=== PATIENT | male | born 1965 | race Asian ===

== ENCOUNTER 2017-03-25 12:29 | Emergency (ER) | payer OTHER ==
[~2017-03-25] VITALS: Ht 175.3 cm; Wt 83.5 kg
[2017-03-25] MEDS ORDERED: ALLOPURINOL300 M1 ORAL (12:45)
[2017-03-25 14:03] VITALS: BP 169/102
[2017-03-25] MEDS ORDERED: ZOFRAN4 M3 ORAL (14:13)
[2017-03-25] MEDS ORDERED: IBUPROFEN600 MG ORAL (14:13)
--- NOTE | 2017-03-25 14:15 | Diagnostic Imaging Report ---
Indication: Pain Findings: 3 views of the left wrist were obtained. No acute fractures, malalignment, erosions or periostitis are identified. Soft tissues are unremarkable. Impression: No acute findings.
--- NOTE | 2017-03-25 14:15 | Diagnostic Imaging Report ---
Indication: Back pain Comparison: None Findings: 3 views of the lumbar spine were obtained. Multilevel narrowing of intervertebral disks and associated endplate and facet osteophytes are present. There is a minimal anterolisthesis at L4-5. No acute fracture definitely seen. Impression: Mild spondylosis. No acute injury appreciated.
--- NOTE | 2017-03-25 20:58 | Emergency Room Report ---
History of Present Illness General Chief Complaint: Multiple Trauma/Fall Source: Patient Present Illness HPI The patient is a 51-year-old male presenting for pain after workplace injury. He states that he slipped and fell today. He states that he broke his fall with his left hand and also hit his head. No loss of consciousness. He is now experiencing dizziness, headache, nausea, and left wrist pain. he denies previous injury to these areas. Pain is an 8/10 dull ache and does not radiate from the wrist. He also admits to some numbness of his hand. He denies other symptoms including vomiting, neck pain, chest pain, shortness of breath Allergies: Coded Allergies: No Known Allergies (Unverified , 03/25/17) Patient History Past Medical History: see triage record Pertinent Family History: none Reviewed Nursing Documentation: PMH: Agreed, PSxH: Agreed Nursing Documentation-PMH Past Medical History: No History, Except For Review of Systems All Other Systems: negative except mentioned in HPI Physical Exam Vital Signs Date Time Temp Pulse Resp B/P (MAP) Pulse Ox O2 Delivery O2 Flow Rate FiO2 03/25/17 12:41 98.8 100 17 169/102 99 Room Air Sp02 EP Interpretation: reviewed, normal General Appearance: no apparent distress, alert, GCS 15, non-toxic Head: normocephalic, atraumatic, other - TTP L parietal scalp Eyes: bilateral eye normal inspection, bilateral eye PERRL, bilateral eye EOMI ENT: hearing grossly normal, normal pharynx, no angioedema, normal voice, uvula midline Neck: full range of motion, supple/symm/no masses Respiratory: chest non-tender, lungs clear, normal breath sounds, speaking full sentences Cardiovascular #1: regular rate, rhythm, no edema Musculoskeletal: normal inspection, normal range of motion, tender - L wrist, L spine. No step-offs. Normal gait. Full AROM intact Neurologic: alert, oriented x3, responsive, motor strength/tone normal, sensory intact, speech normal Psychiatric: judgement/insight normal, memory normal, mood/affect normal, no suicidal/homicidal ideation Skin: normal color, no rash, warm/dry, well hydrated Procedures Splinting Splinting : Consent: Verbal Location: L arm Pre-Made Type: metal Splint: volar Pre-Proc Neuro Vasc Exam: normal Post-Proc Neuro Vasc Exam: normal Patient Tolerated: Well Complications: None Medical Decision Making PA Attestation Dr. Blanco is my supervising physician. Patient management was discussed with my supervising physician Diagnostic Impression: Primary Impression: Concussion Qualified Codes: S06.0X0A - Concussion without loss of consciousness, initial encounter Additional Impressions: Left wrist sprain Qualified Codes: S63.502A - Unspecified sprain of left wrist, initial encounter Fall Qualified Codes: W19.XXXA - Unspecified fall, initial encounter ER Course The patient is a 51-year-old male presenting for pain after workplace injury. Differential diagnoses considered but not limited to: Concussion, contusion, intracranial hemorrhage, fracture, sprain, among others PE: NAD HEENT exam reveals tenderness to palpation over left parietal scalp. No hematoma. No ecchymosis. No crepitus or depressions. PERRL. EOMI Neck is soft and supple. Nontender Left wrist: Diffuse tenderness to palpation. Full active range of motion is intact. [employer] strength 5/5 X-ray of the left wrist is unremarkable Patient will be diagnosed clinically for concussion primarily based on history. No imaging needed at this time Left wrist splint is placed and the patient will be discharged home with prescription for Motrin. ER precautions are given. he will followup with workers compensation Other X-Ray Diagnostic Results Other X-Ray Diagnostic Results #1: X-Ray ordered: L wrist # of Views/Limited Vs Complete: 3 View Indication: Pain EP Interpretation: Yes PA Xray: Interpretation reviewed, by supervising MD Interpretation: no dislocation, no soft tissue swelling, no fractures Impression: No acute disease Electronically Signed by: Abhijit Corea PA-C Other X-Ray Diagnostic Results #2: X-Ray ordered: L spine # of Views/Limited Vs Complete: 3 View Indication: Pain EP Interpretation: Yes PA Xray: Interpretation reviewed, by supervising MD, and agrees with findings. Interpretation: no dislocation, no soft tissue swelling, no fractures Impression: No acute disease Electronically Signed by: Abhijit Corea PA-C Last Vital Signs Date Time Temp Pulse Resp B/P (MAP) Pulse Ox O2 Delivery O2 Flow Rate FiO2 03/25/17 14:03 100 17 169/102 99 Room Air 03/25/17 14:03 98.8 Status: improved Disposition: HOME, SELF-CARE Condition: Improved Scripts Ondansetron* (ZOFRAN*) 4 Mg Tablet 4 MG ORAL Q6H Y for Nausea & Vomiting, #15 TAB Prov: ABHIJIT COREA 03/25/17 Ibuprofen* (MOTRIN*) 600 Mg Tablet 600 MG ORAL Q8H Y for For Pain, #30 TAB 0 Refills Prov: ABHIJIT COREA 03/25/17 Patient Instructions: Concussion, Adult, Wrist Sprain Additional Instructions: I discussed my findings with the patient. All questions and concerns have been answered. Treatment and medication compliance have been addressed. I advised the patient that they need to follow up with PMD in 3-5 days. Return to ED if symptoms worsen, new symptoms arise, or if needed for any reason. Patient verbalized understanding of discharge instructions. ABHIJIT COREA Mar 25, 2017 20:58
== END 2017-03-25 14:28 | disposition home or self-care (01) ==
LOC: EMR 13:48
DX: S06.0X0A Concussion without loss of consciousness, initial encounter (principal); S63.502A Unspecified sprain of left wrist, initial encounter; W19.XXXA Unspecified fall, initial encounter; Y92.239 Unspecified place in hospital as the place of occurrence of the external cause; Y99.0 Civilian activity done for income or pay; M47.816 Spondylosis without myelopathy or radiculopathy, lumbar region
CPT/HCPCS: 72020; 99284